=== PATIENT | female | born 1945 | race Caucasian/White ===

== ENCOUNTER 2019-11-30 20:05 | Inpatient (IN) | payer MEDICARE, BC ==
[~2019-11-30] VITALS: Ht 149.9 cm; Wt 46.7 kg
--- NOTE | 2019-11-30 20:17 | NUR ---
THIS IS A 74 YO FEMALE BIB EMS FROM HOME. PATIENT STATES "I GOT UP FROM [place] BECAUSE I FELT LIKE I HAD TO USE THE RESTROOM, AND WHEN I SAT DOWN THER WAS A BUNCH OF BRIGHT RED BLOOD". PATIENT DENIES DIZZNESS OR LIGHTHEADED, DENIES SOB/CP, PATIENT DENIES ANY PAIN, STATES "I AM ALMOST POSITIVE IT WAS FROM MY BOTTOM". PATIENT DENIES HEMERRHOIDS, DENIES CONSTIPATION OR DIARRHEA. NO OTHER MEDICAL COMPLAINTS AT THIS TIME. ALL MONITORING IN PLACE, SINUS TACHYCARDIC AT 103, HYPERTENSIVE. CALL LIGHT IN REACH. SMILEY VASQUEZ TO ROOM FOR EVAL
[2019-11-30] MEDS ORDERED: SODIUM CHLORIDE FLUSH 10ML SYR IVF ONE (20:30)
[2019-11-30] MEDS ORDERED: SODIUM CHLORIDE 0.9% 1,000ML IVBOLUS ONE (20:30)
--- NOTE | 2019-11-30 20:45 | NUR ---
PIV PLACED, LABS DRAWN AND SENT. IVF RUNNING
[2019-11-30 20:52] LABS: BASOPHILS # (AUTO) 0.07 x10^3/uL (0-0.1); BASOPHILS % (AUTO) 1 % (0-1); EOSINOPHILS # (AUTO) 0.57 x10^3/uL (0-0.4); EOSINOPHILS % (AUTO) 7 % (1-7); LYMPHOCYTES # (AUTO) 1.42 x10^3/uL (1-3.4); LYMPHOCYTES % (AUTO) 18 % (22-44); MD NO; MEAN CORPUSCULAR HEMOGLOBIN 33.5 pg (27.0-34.8); MEAN CORPUSCULAR HGB CONC 33.6 g/dL (32.4-35.8); MEAN CORPUSCULAR VOLUME 99.7 fL (80-100); MEAN PLATELET VOLUME 7.6 fL (7.4-10.4); MONOCYTES # (AUTO) 0.66 x10^3/uL (0.2-0.8); MONOCYTES % (AUTO) 8 % (2-9); NEUTROPHILS # (AUTO) 5.33 x10^3/uL (1.8-6.8); NEUTROPHILS % (AUTO) 66 % (42-75); PLATELET COUNT 150 x10^3/uL (130-400); RED BLOOD COUNT 3.39 x10^6/uL (3.82-5.3); RED CELL DISTRIBUTION WIDTH 13.1 % (9.6-15.2)
[2019-11-30 21:02] LABS: INTERNATIONAL NORMALIZED RATIO 1.09 (0.93-1.1); PROTHROMBIN TIME 11.6 Seconds (9.6-11.5)
[2019-11-30 21:03] LABS: ALANINE AMINOTRANSFERASE 36 U/L (12-78); ALBUMIN 3.8 g/dL (3.4-5.0); ANION GAP 12 mmol/L (5-15); CALCIUM 9.3 mg/dL (8.5-10.1); CHLORIDE 106 mmol/L (98-107); CREATININE 1.28 mg/dL (0.55-1.02)
[2019-11-30 21:05] LABS: ALKALINE PHOSPHATASE 119 U/L (45-117); BILIRUBIN,TOTAL 0.8 mg/dL (0.2-1.0); TOTAL PROTEIN 8.2 g/dL (6.4-8.2)
--- NOTE | 2019-11-30 21:19 | NUR ---
PATIENT TO CT
[2019-11-30] MEDS ORDERED: OMNIPAQUE 350 MG/ML, 100ML BOTTLE ONE (21:48)
[2019-11-30] MEDS ORDERED: ACETAMINOPHEN 325 MG TABLET PO PRN (22:30)
[2019-11-30] MEDS ORDERED: ONDANSETRON 2MG/ML, 2ML IVPush PRN (22:30)
--- NOTE | 2019-11-30 22:53 | NUR ---
PATIENT HAD BM IN COMMODE. LARGE AMOUNT OF BLOOD MIXED WITH URINE AND STOOL NOTED.
--- NOTE | 2019-11-30 23:13 | NUR ---
REPORT GIVEN TO GISSELLE LARA. PLAN OF CARE DISCUSSED
[2019-11-30 23:48] VITALS: BP 162/93
[2019-12-01] MEDS ORDERED: LISI10TA2 PO (00:04)
[2019-12-01] MEDS ORDERED: FENO50CA4 PO (00:04)
[2019-12-01] MEDS ORDERED: ERGO400T3 PO (00:04)
[2019-12-01] MEDS ORDERED: ATOR20TA86 PO (00:04)
[2019-12-01] MEDS: NS + 20MEQ KCL 1,000 ML IV SCH ×3 (00:38→21:17)
[2019-12-01 01:40] VITALS: BP 148/90
[2019-12-01 05:21] LABS: ALANINE AMINOTRANSFERASE 33 U/L (12-78); ALBUMIN 3.4 g/dL (3.4-5.0); ANION GAP 11 mmol/L (5-15); CALCIUM 9.1 mg/dL (8.5-10.1); CHLORIDE 112 mmol/L (98-107); CREATININE 1.01 mg/dL (0.55-1.02)
[2019-12-01 05:24] LABS: ALKALINE PHOSPHATASE 111 U/L (45-117); BILIRUBIN,TOTAL 0.5 mg/dL (0.2-1.0); TOTAL PROTEIN 7.5 g/dL (6.4-8.2)
[2019-12-01] MEDS ORDERED: PINK LADY ENEMA 490 ML BOTTLE PR ONE (06:00)
[2019-12-01 06:31] VITALS: BP 166/87
[2019-12-01] MEDS ORDERED: FENTANYL PF 100 MCG/2ML ONE (08:40)
[2019-12-01] MEDS ORDERED: MIDAZOLAM 1 MG/ML, 5ML ONE (08:40)
[2019-12-01] MEDS: [UNRECOGNIZED DRUG - OTHER] RIGHTEYE SCH ×2 (12:00→20:47)
[2019-12-01 13:07] VITALS: BP 163/78
[2019-12-01 16:28] VITALS: BP 169/79
[2019-12-01] MEDS ORDERED: hydrALAzine 20 MG/ML, 1ML IVPush PRN (17:00)
[2019-12-01] MEDS ORDERED: LABETALOL 5MG/ML, 20ML IVPush PRN (17:00)
[2019-12-01 20:36] VITALS: BP 162/73
[2019-12-02 02:00] VITALS: BP 157/79
[2019-12-02] MEDS: NS + 20MEQ KCL 1,000 ML IV SCH (06:01)
[2019-12-02 06:34] VITALS: BP 158/80
[2019-12-02] MEDS: [UNRECOGNIZED DRUG - OTHER] RIGHTEYE SCH (07:41)
[2019-12-02] MEDS ORDERED: LISINOPRIL 10 MG TABLET PO SCH (09:00)
== END 2019-12-02 11:42 | disposition home or self-care (01) | DRG 377 ==
LOC: ED 21:37 → 4EST 22:24
PROVIDERS: ADMIT Hospitalist; ATTEND Hospitalist
PROC: 0DJD8ZZ Inspection of Lower Intestinal Tract, Via Natural or Artificial Opening Endoscopic (ICD-10-PCS; principal; 2019-12-01 09:00)
DX: K57.31 Diverticulosis of large intestine without perforation or abscess with bleeding (principal); N17.0 Acute kidney failure with tubular necrosis; D64.9 Anemia, unspecified; E78.5 Hyperlipidemia, unspecified; I10 Essential (primary) hypertension; K80.20 Calculus of gallbladder without cholecystitis without obstruction; Z79.899 Other long term (current) drug therapy
CPT/HCPCS: 36415; 74177; 80053; 85014; 85018; 85025; 85610; 85730; 86850; 86900; 93005; 96360; 99152; 99153; G0378; J2250; J3010; J3480; Q9967; J7030